=== PATIENT | female | born 1965 | race Hispanic/Latino ===

== ENCOUNTER 2018-06-05 12:42 | Inpatient (IN) | payer SELFPAY ==
[~2018-06-05] VITALS: Ht 160 cm; Wt 85.0 kg
[2018-06-05] MEDS ORDERED: SODIUM CHLORIDE 0.9% 1000ML 1,000 ML IV STA (12:55)
[2018-06-05 13:25] LABS: BASOPHILS % 0.5 % (0.0-1.0); EOSINOPHILS # (AUTO) 0.1 (0.0-0.4); EOSINOPHILS % 2.4 % (0.0-6.0); HEMATOCRIT 41.1 % (34.2-44.1); HEMOGLOBIN 14.6 g/dL (12.0-16.0); LYMPHOCYTES # (AUTO) 1.3 (1.0-3.2); LYMPHOCYTES % 21.2 % (18.0-39.1); MEAN CORPUSCULAR HEMOGLOBIN 27.8 pg (28-32); MEAN CORPUSCULAR HGB CONC 35.5 g/dL (31-35); MEAN CORPUSCULAR VOLUME 78.3 fL (81-99); MONOCYTES # (AUTO) 0.4 (0.2-0.8); MONOCYTES % 7.5 % (4.4-11.3); NEUTROPHILS % 67.9 % (38.7-80.0); PLATELET COUNT 189 x10e3/uL (140-360); RED BLOOD COUNT 5.25 x10e6/uL (3.6-5.1); RED CELL DISTRIBUTION WIDTH 13.2 % (11.7-14.4)
[2018-06-05 13:36] LABS: INR 1.1; PROTHROMBIN TIME 13.4 seconds (11.9-14.5)
[2018-06-05 13:37] LABS: PARTIAL THROMBOPLASTIN TIME 43.2 seconds (23.8-35.5)
[2018-06-05 13:46] LABS: ALANINE AMINOTRANSFERASE 24 IU/L (0-55); ALBUMIN 3.9 g/dL (3.5-5.0); ALBUMIN/GLOBULIN RATIO 1.1 (0.8-2.0); ALKALINE PHOSPHATASE 106 IU/L (40-150); ANION GAP 19.1 mmol/L (8-16); BLOOD UREA NITROGEN 10 mg/dL (7-26); BUN/CREATININE RATIO 11 (6-25); CALCIUM 9.9 mg/dL (8.4-10.2); CARBON DIOXIDE 24 mmol/L (22-29); CHLORIDE 100 mmol/L (98-107); CREATINE KINASE 33 IU/L (29-168); EST GLOMERULAR FILTRATION RATE > 60 ML/MIN (60-); GLUCOSE 328 mg/dL (74-118); POTASSIUM 4.1 mmol/L (3.5-5.1); SODIUM 139 mmol/L (136-145)
[2018-06-05 14:12] LABS: BILIRUBIN,URINE NEGATIVE (NEGATIVE); CLARITY,URINE SL CLOUDY (CLEAR); COLOR,URINE YELLOW (YELLOW); KETONES,URINE TRACE (NEGATIVE); LEUKOCYTE ESTERASE ,URINE NEGATIVE (NEGATIVE); NITRITE,URINE NEGATIVE (NEGATIVE); PROTEIN,URINE DIPSTICK 2+ (NEGATIVE); URINE UROBILINOGEN 0.2 mg/dL (0.2 - 1)
[2018-06-05 14:18] LABS: AMORPHOUS SEDIMENT,URINE MODERATE (FEW); BACTERIA,URINE MANY /HPF; EPITHELIAL CELLS,URINE MANY /LPF; WBC,URINE (MAN) 0-5 /HPF (0-5)
[2018-06-05] MEDS ORDERED: PHENYTOIN SODIUM INJ 50 MG/ML 2 ML VIAL IV STA (14:43)
--- NOTE | 2018-06-05 14:55 | Diagnostic Imaging Report ---
Exam: Head CT without contrast History: Weakness, right arm and leg numbness Comparison studies: None Technique: Axial images were obtained from the skull base to the vertex. Coronal and sagittal images reconstructed from the axial data. Intravenous contrast: None Findings: Scalp: No abnormalities. Bones: No fractures, blastic or lytic lesions. Brain sulci: Appropriate for age. Ventricles: Normal in size and configuration. No hydrocephalus. Extra-axial spaces: No masses, no fluid collection. Parenchyma: No mass, acute hemorrhage or acute cortical vascular insults. Age-indeterminate 1.2 cm lacunar insult centered in the left lentiform nucleus extends extends to the anterior limb of the left left internal capsule. Sellar/suprasellar region: No abnormalities. Craniocervical junction: Patent foramen magnum. No Chiari one malformation. Incidental findings: Chronic fibro-osseous changes in the left mastoids which may be sequela of chronic inflammation. IMPRESSION: 1. Age-indeterminate lacunar insult centered in the left lentiform nucleus. Brain MRI without IV contrast could further evaluate. 2. No other intracranial abnormalities. Signed by: Dr. Casey Blandon M.D. on 06/05/2018 2:51 PM
[2018-06-05] MEDS ORDERED: SODIUM CHLORIDE 0.9% IV ONE (15:15)
[2018-06-05] MEDS ORDERED: PHENYTOIN SODIUM IV ONE (15:15)
[2018-06-05] MEDS ORDERED: DEXTROSE 50% SYRINGE 50 ML IV PRN (16:30)
[2018-06-05] MEDS ORDERED: ONDANSETRON HCL INJ 2 MG/ML VIAL IV PRN (16:30)
[2018-06-05] MEDS ORDERED: ASPIRIN 325 MG TAB PO ONE (17:00)
[2018-06-05] MEDS: SODIUM CHLORIDE 0.9% 1000ML 1,000 ML IV SCH (17:37)
[2018-06-05] MEDS: INSULIN REGULAR, HUMAN 100 UNIT/1 ML 3ML VIAL SQ SCH ×2 (17:37→21:24)
[2018-06-05] MEDS ORDERED: LORAZEPAM INJ 2 MG/ML VIAL ONE (17:51)
[2018-06-05] MEDS ORDERED: LORAZEPAM INJ 2 MG/ML VIAL IV ONE (18:00)
--- NOTE | 2018-06-05 18:47 | Diagnostic Imaging Report ---
Examination: MRI BRAIN WITHOUT CONTRAST History: Fatigue. Right-sided focal seizures. Comparison studies: Head CT performed earlier today. Technique: Sagittal T2; axial DWI, FLAIR, GRE or SWI, T1, Coronal FLAIR. Intravenous contrast: None Findings: Scalp: No abnormal signal. No masses. Bone marrow: Normal in signal intensity. Brain volume: Adequate for age. No volume loss. Ventricles: Normal in size and configuration. No hydrocephalus. Extra-axial spaces: No abnormalities. Parenchyma: There is FLAIR signal abnormality in the cortical left superior frontal gyrus with associated diffusion restriction. There are areas of FLAIR signal abnormality in the inferior left caudate head and left globus pallidus without associated restricted diffusion. No masses or hemorrhage. Suprasellar and sellar region: No abnormalities. Craniocervical junction: No abnormalities. The foramen magnum is patent. No Chiari malformations. Vessels: Normal flow-voids in the arteries and sinuses. Additional findings:None. IMPRESSION: Nonhemorrhagic, small cortical based infarct involving the superior left frontal gyrus. Chronic lacunar infarcts in the globus pallidus and inferior aspect of the caudate head. Dr. Melissa Robertson discussed findings and recommendations with Dr. Holland on 06/05/2018 at 1844 hours. Signed by: Dr. Melissa Robertson M.D. on 06/05/2018 6:44 PM
[2018-06-05] MEDS ORDERED: AZTREONAM 1 GM/NS 50 ML 50 ML IV SCH (19:15)
[2018-06-05 20:00] VITALS: BP 107/73
[2018-06-05] MEDS ORDERED: LEVETIRACETAM 500MG/5ML VIAL 500 MG in SODIUM CHLORIDE 0.9% 100 ML 100 ML IV SCH (20:00)
[2018-06-05] MEDS: AZTREONAM 1 GM VIAL IV SCH (20:32)
--- NOTE | 2018-06-05 20:55 | History and Physical ---
TIME OF SERVICE: 7 p.m. PRIMARY CARE PHYSICIAN: Dr. Nielson. CHIEF COMPLAINT: Shaking and seizure-like activity. HISTORY OF PRESENT ILLNESS: A 52-year-old woman with a history of diabetes mellitus now developing shaking episodes while lying on the couch, and family members show shaking and then her eyes rolled back into her head showing the sclerae. The patient was not interactive. She started vomiting, and was brought to the hospital and here seizure has resolved, but now having some right-sided tremors, which the family states is new. Imaging suggested acute versus subacute stroke. She is admitted for further evaluation and management. PAST MEDICAL HISTORY: Diabetes mellitus type 2, hypertension. PAST SURGICAL HISTORY: Cholecystectomy and . ALLERGIES: PER ELECTRONIC MEDICAL RECORDS. FAMILY AND SOCIAL HISTORY: The patient is . She has 4 children. No alcohol, illicits or cigarettes. MEDICATIONS: Per electronic medical records. REVIEW OF SYSTEMS: Unreliable. PHYSICAL EXAMINATION VITAL SIGNS: Reviewed. GENERAL APPEARANCE: A tired-appearing woman resting in the bed. HEENT: Anicteric. Pupils responsive to light. No oral lesions. CARDIOVASCULAR: Normal S1 and S2. LUNGS: Moderate breath sounds, ABDOMEN: Soft and nontender. Nondistended. EXTREMITIES: There is no edema or calf tenderness. NEUROLOGIC: Alert and oriented x3. Moving all extremities. Motor strength 5/5 in all extremities. No visual field deficits. SKIN: Dry. PSYCHIATRIC: Flat affect. LABS: Reviewed. MEDICATIONS: Reviewed. ASSESSMENT: 1. New onset seizure. 2. Urinary tract infection. 3. Ischemic brain infarct, acute versus subacute. 4. Obesity. 5. Diabetes mellitus type 2. PLAN: 1. The patient received Keppra. Will continue Keppra at 500 IV q.12 h. 2. Treat infection with aztreonam. She is allergic to penicillin. 3. Obtain urine culture. 4. Rehydrate the patient. 5. Physical therapy consultation. 6. Utilize SCDs. 7. Neurology consultation. 8. Pepcid for GI prophylaxis. 9. Physical therapy consultation. 10. Monitor closely overnight. 11. Followup labs in the morning. Job#: [id number]
[2018-06-06] VITALS (9 sets, daily range): BP systolic 97–130; BP diastolic 59–76
[2018-06-06] MEDS: SODIUM CHLORIDE 0.9% 1000ML 1,000 ML IV SCH ×4 (00:25→20:51)
[2018-06-06 03:18] LABS: BASOPHILS % 0.6 % (0.0-1.0); EOSINOPHILS # (AUTO) 0.2 (0.0-0.4); EOSINOPHILS % 2.7 % (0.0-6.0); HEMATOCRIT 34.3 % (34.2-44.1); HEMOGLOBIN 11.8 g/dL (12.0-16.0); LYMPHOCYTES # (AUTO) 1.9 (1.0-3.2); LYMPHOCYTES % 30.5 % (18.0-39.1); MEAN CORPUSCULAR HEMOGLOBIN 27.7 pg (28-32); MEAN CORPUSCULAR HGB CONC 34.4 g/dL (31-35); MEAN CORPUSCULAR VOLUME 80.5 fL (81-99); MONOCYTES # (AUTO) 0.6 (0.2-0.8); MONOCYTES % 9.7 % (4.4-11.3); NEUTROPHILS # (AUTO) 3.6 (2.1-6.9); PLATELET COUNT 165 x10e3/uL (140-360); RED BLOOD COUNT 4.26 x10e6/uL (3.6-5.1); RED CELL DISTRIBUTION WIDTH 13.4 % (11.7-14.4)
[2018-06-06 03:54] LABS: ALANINE AMINOTRANSFERASE 18 IU/L (0-55); ALBUMIN 3.1 g/dL (3.5-5.0); ALKALINE PHOSPHATASE 82 IU/L (40-150); ANION GAP 9.5 mmol/L (8-16); BLOOD UREA NITROGEN 13 mg/dL (7-26); BUN/CREATININE RATIO 17 (6-25); CALCIUM 8.5 mg/dL (8.4-10.2); CARBON DIOXIDE 27 mmol/L (22-29); CHLORIDE 109 mmol/L (98-107); CREATINE KINASE 40 IU/L (29-168); CREATININE, SERUM 0.77 mg/dL (0.57-1.11); EST GLOMERULAR FILTRATION RATE > 60 ML/MIN (60-); GLUCOSE 167 mg/dL (74-118); MAGNESIUM 2.1 MG/DL (1.3-2.1); POTASSIUM 3.5 mmol/L (3.5-5.1); SODIUM 142 mmol/L (136-145)
[2018-06-06 08:53] LABS: CHOL/HDL RATIO 6.9 (3.0-3.6); CHOLESTEROL 194 MD/DL (0-199); HDL CHOLESTEROL 28 MG/DL (40-60); TRIGLYCERIDES 436 MG/DL (0-149)
[2018-06-06] MEDS: FAMOTIDINE 20 MG TAB PO SCH ×2 (09:45→16:58)
[2018-06-06] MEDS: AZTREONAM 1 GM VIAL IV SCH ×2 (09:46→20:50)
[2018-06-06] MEDS: LEVETIRACETAM 500 MG TAB PO SCH ×2 (09:46→16:58)
[2018-06-06] MEDS: ASPIRIN 325 MG TAB EC PO SCH (09:46)
[2018-06-06] MEDS: INSULIN REGULAR, HUMAN 100 UNIT/1 ML 3ML VIAL SQ SCH ×4 (10:00→20:51)
--- NOTE | 2018-06-06 10:55 | Consultation ---
DATE OF CONSULTATION: June 06, 2018 NEUROLOGY CONSULTATION HISTORY OF PRESENT ILLNESS: Ms. Bhatt is a 52-year-old, [id number]-[id number] woman with past medical history significant for diabetes mellitus type 2 and possible hypertension, who presented to the emergency department at [facility] on June 05, 2018, with activity concerning for a seizure. History is obtained with the aid of a steel loader. On the afternoon of June 05, 2018, the patient experienced the sudden onset of shaking of the right hand and arm. After several seconds, the patient became unresponsive with a twisting movement toward her left side. The duration of this activity is not known. There was no tongue biting or bladder/bowel incontinence. Ms. Bhatt did vomit during the event. Once this activity ceased, the patient reports she was "very tired." Ms. Bhatt returned to her neurological baseline after approximately 20 to 30 minutes. The above-described event was witnessed by the patient's son who alerted his father, the patient's . Upon receiving the telephone call from his son, Mr. Bhatt left work to come home, then brought his to the emergency center at [facility] for further evaluation and treatment. Upon arrival in the emergency center, the patient was afebrile with a blood pressure 133/88 mmHg and pulse of 126 beats per minute. Her neurological examination was documented as being nonfocal. A CT of the brain without contrast was performed and did not show evidence of recent large territorial ischemia, hemorrhage, mass, or mass effect. While in the emergency center, the patient experienced a 2nd seizure, which was witnessed by emergency center personnel. Ms. Bhatt was given a loading dose of phenytoin intravenously and admitted to the hospital under observation status for further evaluation and treatment of her symptoms. Ms. Bhatt does not report experiencing similar events previously. She does not report a history of febrile seizures. There is no known family history of seizures. Patient endorses a remote history of head trauma; she hit her head on a steel beam approximately 25 years ago. There is no history of meningitis or encephalitis. Ms. Bhatt does not report a visual field cut or other disturbance, dysarthria, aphasia, hemiparesis, hemihypesthesia, gait impairment or poor balance, or dizziness. REVIEW OF SYSTEMS: Confusion, tiredness, seizures. Otherwise, the 12-point review of systems is negative. PAST MEDICAL HISTORY: Diabetes mellitus type 2, possible hypertension. PAST SURGICAL HISTORY: section times 3, cholecystectomy. PAST HOSPITALIZATIONS: Surgeries/procedures as listed above. FAMILY MEDICAL HISTORY: Unknown. SOCIAL HISTORY: Patient is . She graduated high school. 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 The patient does not report current or prior tobacco, alcohol, or recreational drug use. HOME MEDICATIONS: Metformin 1,000 mg by mouth twice daily. ALLERGIES: PENICILLIN. NO KNOWN FOOD ALLERGIES. NO KNOWN ALLERGY TO LATEX. NO KNOWN ALLERGIES TO IODINE OR OTHER CONTRAST MATERIALS. PHYSICAL EXAMINATION VITAL SIGNS: Height 63 inches, weight 175 pounds, BMI 31.0 kg per meter squared. Blood pressure 100/59 mmHg, pulse 85 beats per minute, respiratory rate 18 breaths per minute, oxygen saturation 96% on room air. GENERAL: The patient is awake and alert, does not appear distressed. Obese. HEENT: Normocephalic, atraumatic. Pupils are equal, round and reactive to light. Moist mucous membranes. NECK: Supple. No appreciable thyromegaly. No appreciable carotid bruits. CARDIOVASCULAR: S1, S2, regular rate and rhythm. No murmurs rubs, or gallops. RESPIRATORY: Clear to auscultation bilaterally. No wheezes rhonchi, or rales. EXTREMITIES: The skin is warm and dry. No clubbing, cyanosis, or edema. The posterior tibial and dorsalis pedis pulses are 2+ and symmetric. SKIN: No rashes or lesions. NEUROLOGIC MEMORY/ATTENTION: The patient is awake and alert, oriented to person, place, time, and situation. CRANIAL NERVES: Cranial nerve I: Not tested. Cranial nerves II, III, IV, and : Pupils are equal and round, react briskly to light (from 4 mm to 2 mm). Extraocular movements are intact. No nystagmus. Cranial nerve V: Sensation to light touch and pinprick is intact in the bilateral V1 through V3 distributions. Strength of the temporalis and masseter muscles is within normal limits. Cranial nerve VII: The face is symmetric as are all facial movements. Strength is within normal limits. Cranial nerve VIII: Hearing is intact to finger rub bilaterally. Cranial nerves IX and X: The soft palate elevates equally and symmetrically. Cranial nerve XI: Normal strength of the bilateral sternocleidomastoid and trapezius muscles. Cranial nerve XII: The tongue protrudes midline and moves symmetrically from side to side. STRENGTH: Bulk is normal. Strength is 5/5 in the bilateral deltoids, biceps, triceps, wrist flexors and extensors, finger flexors and extensors, intrinsic hand muscles, hip flexors, knee flexors and extensors, ankle dorsiflexion and plantarflexion, and intrinsic foot muscles. Tone is normal. DTRs: Deep tendon reflexes are trace and symmetric at the triceps, biceps, brachioradialis, patellas and Achilles. Plantar responses are flexor bilaterally. SENSATION: Sensation is intact to light touch and pinprick in both arms and both legs. CEREBELLAR: Wfjyzt-yuku-amgtwr and heel-vera movements are intact without dysmetria or other impairment. GAIT: Deferred. SPEECH: Spontaneous speech is normal without appreciable dysarthria or aphasia. Repetition is intact. INVOLUNTARY MOVEMENTS: There are occasional jerking movements of the right arm which appear involuntary. PRONATOR DRIFT: None. LABORATORY DATA: Sodium 142, potassium 3.5, chloride 109, carbon dioxide 27, anion gap 9.5, BUN 13, creatinine 0.77, estimated GFR greater than 60, APQ-ba-yfwxeapjbz ratio 17, glucose 167, calcium 8.5, magnesium 2.1. Total bilirubin 0.5, AST 12, ALT 18, alkaline phosphatase 82. Total protein 6.1, albumin 3.1, globulin 3.0, tbzyogo-jb-hvbfehbr ratio 1.0. Creatine kinase 33, 40. CK-MB 0.80, 0.60. Troponin I 0.004, 0.007. B natriuretic peptide 23.2. Lactic acid 53.5. Hemoglobin A1c 8.9. Total cholesterol 194, triglycerides 436, LDL cholesterol cannot be calculated, HDL cholesterol 28. TSH 3.270. The CBC with differential and platelets reveals a white blood cell count of 6.37 with a normal differential. The hemoglobin and hematocrit are 11.8 and 34.3, respectively. The platelet count is 165. PT 13.4, INR 1.10, PTT 43.2. Urinalysis is significant for specific gravity of 1.030, 2+ protein, 3+ glucose, trace ketones, 1+ blood, 6-10 red blood cells, many epithelials cells, moderate amorphous sediment and many bacteria. DIAGNOSTIC STUDIES 1. CT of the brain without contrast, 06/05/2018: On my review, there is a subacute to chronic lacunar infarct in the left lentiform nucleus. There is no evidence of hemorrhage, mass or mass effect. 2. MRI of the brain without contrast, 06/05/2018: There is an acute ischemic infarct of the superior left frontal gyrus. There are chronic lacunar infarcts in the globus pallidus and inferior aspect of the caudate head. There are findings compatible with mild chronic small vessel ischemic disease. ASSESSMENT AND PLAN: Ms. Bhatt is a 52-year-old, zuwan-fuia-grblnkdz woman with past medical history significant for diabetes mellitus type 2 and possible hypertension, admitted to [facility] on June 05, 2018, with complex partial seizure secondary to acute ischemic stroke in the superior left frontal gyrus. At present, the patient's neurological examination is nonfocal. Her laboratory data and other diagnostic studies have been reviewed and are documented as above. RECOMMENDATIONS 1. Direct LDL. 2. Echocardiogram. 3. Bilateral carotid artery ultrasound with Doppler. 4. Aspirin 325 mg by mouth daily for stroke prophylaxis. 5. At present, the patient's blood pressures are well controlled. Continue to monitor vital signs per unit protocol. 6. Follow up the results of the direct LDL so the patient may be placed on a statin medication. 7. The patient's hemoglobin A1c of 8.9 is above the goal of less than 7.0. Continue home medications. An insulin sliding scale has been prescribed. Defer further treatment to the primary service. 8. GI prophylaxis with Pepcid 20 mg by mouth twice daily before meals. DVT prophylaxis with Lovenox 40 mg subcutaneously daily. 9. A physical therapy evaluation has been ordered and is pending. A speech therapy evaluation will be ordered. 10. For further evaluation of the patient's seizures, a routine EEG has been ordered and is pending. 11. Keppra will be increased to 1,000 mg by mouth twice daily. 12. Defer treatment of the remaining medical comorbidities to the primary and other services. Thank you for this consultation. I will continue to follow this patient while she remains in the hospital. Time spent: 70 minutes. Job#: [id number] BONIFACIO AUGUSTE
[2018-06-06 11:37] LABS: CREATINE KINASE MB 0.8 ng/mL (0-5.0)
--- NOTE | 2018-06-06 14:15 | Progress Note ---
DATE: June 06, 2018 TIME: 1:27 p.m. OVERNIGHT: Question of some shaking episodes again during the quality tech. REVIEW OF SYSTEMS: Denies any dizziness, chest pain, shortness of breath. Review of systems limited. PHYSICAL EXAMINATION VITAL SIGNS: Reviewed. GENERAL: A tired-appearing woman resting in bed. HEENT: Anicteric. CARDIOVASCULAR: Normal S1 and S2. LUNGS: Moderate breath sounds. ABDOMEN: Soft, nontender and nondistended. EXTREMITIES: No edema or calf tenderness. NEUROLOGICAL: Alert and oriented times 3. Moving all extremities. No visual field deficit. SKIN: Dry. PSYCHIATRIC: Flat affect. LABS: Reviewed. MEDICATIONS: Reviewed. ASSESSMENT: A 52-year-old woman with: 1. New-onset seizure. 2. Urinary tract infection. 3. Ischemic brain infarct, acute versus subacute. 4. Obesity. 5. Diabetes mellitus, type 2. 6. Hypertriglyceridemia. PLAN 1. Continue Keppra. 2. Continue antibiotics. 3. Follow up cultures. 4. Follow up neurology recommendations. 5. Follow up echocardiogram. 6. Urine culture positive for gram-negative rods. 7. Start fenofibrate. 8. Follow up carotid ultrasound. Job#: [id number] [place]
[2018-06-06] MEDS: ENOXAPARIN SOD INJ 40 MG/0.4 ML SYR SC SCH (16:58)
[2018-06-07 00:50] VITALS: BP 119/67
[2018-06-07 04:20] VITALS: BP 113/69
[2018-06-07 07:00] VITALS: BP 127/71
[2018-06-07 07:28] VITALS: BP 127/71
[2018-06-07] MEDS ORDERED: FENOFIBRATE145 MG PO (07:46)
[2018-06-07] MEDS ORDERED: KEPPRA500 MG PO (07:46)
[2018-06-07] MEDS ORDERED: FAMOTIDINE20 MG PO (07:46)
[2018-06-07] MEDS ORDERED: METFORMIN HCL500 MG PO (07:46)
[2018-06-07] MEDS ORDERED: PRAVASTATIN SOD20 MG PO (07:46)
[2018-06-07] MEDS ORDERED: ASPIRIN ENTERI325 MG PO (07:46)
[2018-06-07] MEDS ORDERED: PLAVIX75 MG PO (07:46)
[2018-06-07] MEDS ORDERED: NITROFURANTOIN100 MG PO (07:53)
--- NOTE | 2018-06-07 08:09 | Discharge Summary ---
PRINCIPAL DIAGNOSES 1. New-onset seizure. 2. Acute ischemic infarct. 3. Urinary tract infection with Escherichia coli. 4. Obesity. 5. Diabetes mellitus, type 2. 6. Hypertriglyceridemia. 7. Hyperlipidemia. 8. Mild mitral regurgitation. 9. Mild tricuspid regurgitation. SECONDARY DIAGNOSIS: Diabetes mellitus, type 2. CHIEF COMPLAINT: Shaking. HISTORY: This is a 52-year-old woman with shaking. Refer to the H and P for further details. HOSPITAL COURSE: The patient was found to have new-onset seizure. Started on Keppra. EEG was performed. The patient also had seizure episodes during hospitalization. She was also found to have acute ischemic infarct and started on aspirin. Will also be discharged on Plavix. Echocardiogram done with ejection fraction of 45% to 50%. Mild tricuspid regurgitation and mild mitral regurgitation. Carotid ultrasound was done. Report was negative. The patient is doing better and stable, and currently appropriate for discharge and follow up. DISCHARGE MEDICATIONS: Per electronic medical record. FOLLOWUP: Primary care doctor in [address] Petersen in 2 weeks. Cleared discharge with Dr. Petersen prior to leaving. DISCHARGE MEDICATIONS: Include Plavix, aspirin, statin, fenofibrate, Keppra, metformin, and Pepcid. FRIDA MYERS MD Job#: [id number] [place]
[2018-06-07] MEDS: FAMOTIDINE 20 MG TAB PO SCH ×2 (08:47→17:34)
[2018-06-07] MEDS: AZTREONAM 1 GM VIAL IV SCH (08:47)
[2018-06-07] MEDS: LEVETIRACETAM 500 MG TAB PO SCH ×2 (08:47→17:34)
[2018-06-07] MEDS: ASPIRIN 325 MG TAB EC PO SCH (08:47)
[2018-06-07] MEDS: INSULIN REGULAR, HUMAN 100 UNIT/1 ML 3ML VIAL SQ SCH ×3 (08:48→17:34)
[2018-06-07] MEDS ORDERED: FENOFIBRATE 145 MG TAB PO SCH (09:00)
[2018-06-07 11:14] VITALS: BP 137/79
[2018-06-07] MEDS: SODIUM CHLORIDE 0.9% 1000ML 1,000 ML IV SCH ×2 (12:59→16:25)
[2018-06-07 15:26] VITALS: BP 128/73
[2018-06-07] MEDS: ENOXAPARIN SOD INJ 40 MG/0.4 ML SYR SC SCH (17:34)
--- NOTE | 2018-06-09 11:36 | Electroencephalogram ---
DATE OF STUDY: June 07, 2018 PROCEDURE: Electroencephalogram. REQUESTING PHYSICIAN: Dr. Gris Petersen PATIENT HISTORY: This is 52-year-old woman with a history of a recent stroke and seizure-like activity is having an EEG for evaluation of epileptiform activity. The patient is not taking any medications that might affect the EEG. TECHNIQUE: This is a routine, portable EEG, recorded digitally, using the international 10/20 electrode placement system, and done in the inpatient setting with the patient awake. The EEG is adequate for interpretation. DESCRIPTION: Well-organized, well-sustained 8-9 Hertz activity is best seen symmetrically in the posterior head regions. No focal or epileptiform activity is recorded. Sleep is not recorded. Photic stimulation does not produce a driving response. Hyperventilation is not performed. INTERPRETATION: The electroencephalogram is normal with the patient awake. No epileptiform discharges are seen. Job#: [id number] MYRIAM AUGUSTE
== END 2018-06-07 18:18 | disposition home or self-care (01) | DRG 100 ==
LOC: ER 12:42 → OBSVTOIN 16:34 → ERHOLD 16:34 → IMCU 18:24
PROVIDERS: ADMIT Internal Medicine; ATTEND Internal Medicine
DX: G40.209 Localization-related (focal) (partial) symptomatic epilepsy and epileptic syndromes with complex partial seizures, not intractable, without status epilepticus (principal); I63.8 Other cerebral infarction; N39.0 Urinary tract infection, site not specified; E78.1 Pure hyperglyceridemia; E78.5 Hyperlipidemia, unspecified; I08.1 Rheumatic disorders of both mitral and tricuspid valves; E11.9 Type 2 diabetes mellitus without complications; Z88.0 Allergy status to penicillin; B96.20 Unspecified Escherichia coli [E. coli] as the cause of diseases classified elsewhere; Z79.84 Long term (current) use of oral hypoglycemic drugs
CPT/HCPCS: 36415; 70450; 70551; 80053; 80061; 81001; 82550; 82553; 82948; 83036; 83605; 83721; 83735; 83880; 84443; 84484; 85025; 85610; 85730; 87040; 87086; 87186; 92523; 93005; 93306; 93880; 95819; 99284; J1165; J1650; J2060; J7030; J7050